=== PATIENT | female | born 1980 | race Caucasian/White ===

== ENCOUNTER 2018-01-29 08:46 | Emergency (ER) | payer MEDICAID ==
[~2018-01-29] VITALS: Ht 154.9 cm; Wt 98.9 kg
[~2018-01-29 08:46] MED LIST: ALPR1 PO; AMOCLA875 PO; AMOX250; AMOX500 PO; CEPH500 PO; CHOL10002 PO; CITA20 PO; CYCL10 PO; Cleocin HCl150 MG PO; Cleocin HCl300 MG PO; HYDACE5 PO; HYDACE5325 PO; HYDCHL25 PO; IBUP600 PO; IBUP800; IBUP800 PO; IMIP50 PO; LEVFLO500; LEVFLO500 PO; LEVSOD100 PO; LEVSOD112 PO; LEVSOD175; LEVSOD200 PO; LEVSOD75 PO; LIDO2L MM; LORA1 PO; LORA2 PO; MEDR10 PO; METO25ER PO; NAPR500 PO; NAPR550 PO; Naprosyn500 MG PO; Norco 5-325 Ta1 EACH PO; OXYACE5T PO; Oxycodone HCl5 M1; PARO20; PENVK500 PO; PHENA200 PO; PROM25 PO; PROP10 PO; PROP120ER; PROZAC; Prozac40 MG PO; Pyridium100 MG PO; RXHYD5325 PO; RXHYDACE PO; RXLORA1 PO; RXOXYACE PO; SULTRIDS PO; TRAM50; Ultram50 MG PO; [UNRECOGNIZED DRUG - OTHER]
[2018-01-29] MEDS ORDERED: CYCL10 PO (09:09)
[2018-01-29] MEDS ORDERED: METO25ER (09:10)
== END 2018-01-29 11:15 | disposition home or self-care (01) ==
LOC: ER 08:46
DX: S50.02XA Contusion of left elbow, initial encounter (principal); S40.012A Contusion of left shoulder, initial encounter; S70.02XA Contusion of left hip, initial encounter; S80.02XA Contusion of left knee, initial encounter; W01.198A Fall on same level from slipping, tripping and stumbling with subsequent striking against other object, initial encounter; Z88.0 Allergy status to penicillin; Z88.5 Allergy status to narcotic agent; Z88.1 Allergy status to other antibiotic agents; Z79.899 Other long term (current) drug therapy; E03.9 Hypothyroidism, unspecified; F41.9 Anxiety disorder, unspecified; F43.10 Post-traumatic stress disorder, unspecified; J44.9 Chronic obstructive pulmonary disease, unspecified; F32.9 Major depressive disorder, single episode, unspecified; F17.200 Nicotine dependence, unspecified, uncomplicated
CPT/HCPCS: 73030; 73070; 73502; 73562-LT; 96372; 99283-25; J1885

== ENCOUNTER 2018-05-20 18:06 | Emergency (ER) | payer SELFPAY ==
[~2018-05-20] VITALS: Ht 154.9 cm; Wt 99.8 kg
[~2018-05-20 18:06] MED LIST changes: +METO25ER
[2018-05-20 18:43] LABS: BASOPHILS ABSOLUTE AUTO 0.06 K/mm3 (0.00-0.23); BASOPHILS PERCENT AUTO 1 % (0-2); EOSINOPHILS PERCENT AUTO 3 % (0-6); Hematocrit 44.8 % (33.0-51.0); Hemoglobin 14.9 g/dL (11.5-16.0); IMMATURE GRAN ABSOLUTE AUTO 0.03 K/mm3 (0.00-0.10); IMMATURE GRAN PERCENT AUTO 0 % (0-1); LYMPHOCYTES ABSOLUTE AUTO 3.32 K/mm3 (0.84-5.20); LYMPHOCYTES PERCENT AUTO 41 % (21-46); MONOCYTES ABSOLUTE AUTO 0.37 K/mm3 (0.16-1.47); MONOCYTES PERCENT AUTO 5 % (4-13); Mean Corpuscular HGB 30.5 pg (26.0-34.0); Mean Corpuscular HGB Conc 33.3 g/dL (31.5-36.5); Mean Corpuscular Volume 92 fL (80-100); Mean Platelet Volume 10.8 fL (9.1-12.4); NEUTROPHILS ABSOLUTE AUTO 4.06 K/mm3 (1.96-9.15); NEUTROPHILS PERCENT AUTO 51 % (41-73); Platelet Count 226 K/mm3 (150-400); RDW Standard Deviation 41.1 fL (35.1-46.3); Red Blood Cell Count 4.88 M/mm3 (3.80-5.20); White Blood Cell Count 8.04 K/mm3 (4.00-11.30)
[2018-05-20 19:04] LABS: Alanine Aminotransfer (ALT/SGP 51 U/L (12-78); Albumin/Globulin Ratio 1.1 (0.8-1.8); Alk Phos 72 U/L (50-136); Anion Gap 7 mmol/L (6-16); Aspartate Aminotrans (AST/SGOT 27 U/L (12-37); Bilirubin, Total 0.6 mg/dL (0.1-1.0); Blood Urea Nitrogen 6 mg/dL (8-24); Bun/Creatinine Ratio 6.9 (12.0-20.0); CO2, Blood 25 mmol/L (21-32); Calcium, Blood 8.6 mg/dL (8.5-10.1); Chloride, Blood 104 mmol/L (98-108); Creatinine, Blood 0.87 mg/dL (0.40-1.00); Globulin, Blood 3.8 g/dL (2.2-4.0); Glomerular Filtration Rate >60 (60-); Glucose, Blood 119 mg/dL (70-99); Potassium, Blood 3.5 mmol/L (3.5-5.5); Sodium, Blood 136 mmol/L (136-145); Total Protein, Blood 7.8 g/dL (6.4-8.2)
== END 2018-05-20 20:43 | disposition home or self-care (01) ==
LOC: ER 18:06
PROVIDERS: Physician Assistant
DX: K80.70 Calculus of gallbladder and bile duct without cholecystitis without obstruction (principal); E03.9 Hypothyroidism, unspecified; F41.9 Anxiety disorder, unspecified; J44.9 Chronic obstructive pulmonary disease, unspecified; F32.9 Major depressive disorder, single episode, unspecified; F17.200 Nicotine dependence, unspecified, uncomplicated; K76.0 Fatty (change of) liver, not elsewhere classified; F43.10 Post-traumatic stress disorder, unspecified; Z85.41 Personal history of malignant neoplasm of cervix uteri; Z79.899 Other long term (current) drug therapy; Z88.1 Allergy status to other antibiotic agents; Z88.5 Allergy status to narcotic agent; Z88.8 Allergy status to other drugs, medicaments and biological substances
CPT/HCPCS: 36415; 76705; 80053; 83690; 85025; 99284-25

== ENCOUNTER 2018-06-09 08:53 | Day surgery (SDC) | payer SELFPAY ==
[~2018-06-09] VITALS: Ht 154.9 cm; Wt 100.7 kg
[~2018-06-09 08:53] MED LIST changes: +ARIP10 PO; +BUSP5 PO; +COMBIVENT RESPIM4 GM INH; +DICL75ER PO; +FLUO10 PO; +MELO7.5 PO; +SPIR50 PO; +Toprol Xl25 MG PO; +Zofran4 MG PO
--- NOTE | 2018-06-09 10:26 | NUR ---
Ambulatory in Day Surgery Surgical site prepped with 2% Chlorhexidine cloth wipe. History, Chart, Medications and Allergies reviewed before start of procedure.Lungs clear T/O to Auscultation. Patient confirms NPO status and agrees with scheduled surgery. Pre-Op teaching done. Pt verbalizes understanding. Patient reports completing Chlorhexadine shower X2 prior to admission to hospital.
--- NOTE | 2018-06-09 12:17 | NUR ---
REPORT TO JULIA LOWRY
--- NOTE | 2018-06-09 13:40 | NUR ---
Patient up to Ambulate independently. Gait steady. Discharge instructions reviewed with patient. Patient verbalizes understanding. Copy given to patient to take home. Patient States Post-Procedure ride home has been arranged. Discharged via wheelchair to private car for ride home.
--- NOTE | 2018-06-10 09:16 | NUR ---
06/10/18 0916 Elena Wilkinson VERIFICATIONS: EDIT CHART.
== END 2018-06-09 22:38 | disposition home or self-care (01) ==
LOC: ORSCMMR 08:53 → ORD 10:30 → ORSCMMR 10:30
PROVIDERS: Surgery
PROC: BF031ZZ Plain Radiography of Gallbladder and Bile Ducts using Low Osmolar Contrast (ICD-10-PCS; principal; 2018-06-09 10:30)
PROC: 0FT44ZZ Resection of Gallbladder, Percutaneous Endoscopic Approach (ICD-10-PCS; principal; 2018-06-09 10:30)
DX: K80.20 Calculus of gallbladder without cholecystitis without obstruction (principal); J44.9 Chronic obstructive pulmonary disease, unspecified; F17.210 Nicotine dependence, cigarettes, uncomplicated; E66.01 Morbid (severe) obesity due to excess calories; Z68.41 Body mass index [BMI] 40.0-44.9, adult
CPT/HCPCS: 74300; 88304; C1729; J0690; J1100; J1885; J2250; J2405; J2710; J3010; J7030; J7120

== ENCOUNTER 2020-02-01 11:45 | Emergency (ER) | payer SELFPAY ==
[~2020-02-01] VITALS: Ht 154.9 cm; Wt 94.8 kg
[2020-02-01 13:41] LABS: BASOPHILS ABSOLUTE AUTO 0.04 K/mm3 (0.00-0.23); BASOPHILS PERCENT AUTO 0 % (0-2); EOSINOPHILS ABSOLUTE AUTO 0.02 K/mm3 (0.00-0.68); EOSINOPHILS PERCENT AUTO 0 % (0-6); Hematocrit 45.6 % (33.0-51.0); Hemoglobin 15.4 g/dL (11.5-16.0); IMMATURE GRAN ABSOLUTE AUTO 0.03 K/mm3 (0.00-0.10); IMMATURE GRAN PERCENT AUTO 0 % (0-1); LYMPHOCYTES ABSOLUTE AUTO 1.73 K/mm3 (0.84-5.20); LYMPHOCYTES PERCENT AUTO 18 % (21-46); MONOCYTES ABSOLUTE AUTO 0.52 K/mm3 (0.16-1.47); MONOCYTES PERCENT AUTO 6 % (4-13); Mean Corpuscular HGB 29.6 pg (26.0-34.0); Mean Corpuscular HGB Conc 33.8 g/dL (31.5-36.5); Mean Corpuscular Volume 88 fL (80-100); Mean Platelet Volume 11.3 fL (9.1-12.4); NEUTROPHILS ABSOLUTE AUTO 7.17 K/mm3 (1.96-9.15); NEUTROPHILS PERCENT AUTO 75 % (41-73); Platelet Count 224 K/mm3 (150-400); RDW Coefficient Variation 11.6 % (11.7-14.2); RDW Standard Deviation 37.2 fL (35.1-46.3); White Blood Cell Count 9.51 K/mm3 (4.00-11.30)
[2020-02-01 14:00] LABS: Source, Urine Clean Catch
[2020-02-01 14:05] LABS: Alanine Aminotransfer (ALT/SGP 50 U/L (12-78); Albumin, Blood 3.8 g/dL (3.4-5.0); Albumin/Globulin Ratio 0.8 (0.8-1.8); Alk Phos 84 U/L (50-136); Anion Gap 9 mmol/L (6-16); Aspartate Aminotrans (AST/SGOT 30 U/L (12-37); Bilirubin, Total 1.1 mg/dL (0.1-1.0); Blood Urea Nitrogen 9 mg/dL (8-24); Bun/Creatinine Ratio 14.9 (12.0-20.0); CO2, Blood 23 mmol/L (21-32); Calcium, Blood 9.3 mg/dL (8.5-10.1); Chloride, Blood 105 mmol/L (98-108); Globulin, Blood 4.9 g/dL (2.2-4.0); Glomerular Filtration Rate >60 (60-); Glucose, Blood 109 mg/dL (70-99); Potassium, Blood 4.1 mmol/L (3.5-5.5); Sodium, Blood 137 mmol/L (136-145); Total Protein, Blood 8.7 g/dL (6.4-8.2)
[2020-02-01 14:14] LABS: Appearance, Urine Clear (Clear); Bilirubin, Urine Neg (Neg); Blood, Urine 1+ (Neg); Color, Urine Yellow (P-Yellow); Glucose Qualitative, Urine Neg (Neg); Ketones, Urine Neg (Neg); Leukocyte Esterase, Urine Neg (Neg); Nitrite, Urine Neg (Neg); Protein, Urine 1+ (Neg); Specific Gravity, Urine 1.015 (1.003-1.022); Urobilinogen, Urine NORM (Normal)
[2020-02-01 14:21] LABS: White Blood Cells, Urine Rare /hpf (0-5)
[2020-02-01 14:22] LABS: Bacteria Mod /hpf; Mucus Light (0-Heavy); Squamous Epithelial Cells Few /hpf (Few)
== END 2020-02-01 16:42 | disposition home or self-care (01) ==
LOC: ER 11:45
PROVIDERS: Physician Assistant
DX: K59.00 Constipation, unspecified (principal); E03.9 Hypothyroidism, unspecified; F41.9 Anxiety disorder, unspecified; J44.9 Chronic obstructive pulmonary disease, unspecified; F32.9 Major depressive disorder, single episode, unspecified; F17.210 Nicotine dependence, cigarettes, uncomplicated; Z88.1 Allergy status to other antibiotic agents; Z88.5 Allergy status to narcotic agent; Z88.8 Allergy status to other drugs, medicaments and biological substances; Z79.899 Other long term (current) drug therapy
CPT/HCPCS: 36415; 74018; 74177; 80053; 81001; 83690; 83735; 85025; 87086; 96361; 96374-59; 99284-25; J1885; J7120; Q9967

== ENCOUNTER 2020-03-18 11:08 | Day surgery (SDC) | payer SELFPAY ==
[~2020-03-18] VITALS: Ht 154.9 cm; Wt 95.0 kg
[2020-03-18] MEDS ORDERED: NEBI5 PO (12:08)
--- NOTE | 2020-03-18 12:51 | NUR ---
PT TOLERATES EXPLANT OF LINQ WELL. VSS. NADN. CALL LIGHT WITHIN REACH.
== END 2020-03-18 22:41 | disposition home or self-care (01) ==
LOC: MHTC 11:08
DX: Z45.09 Encounter for adjustment and management of other cardiac device (principal); I10 Essential (primary) hypertension; E78.5 Hyperlipidemia, unspecified; E03.9 Hypothyroidism, unspecified; F17.210 Nicotine dependence, cigarettes, uncomplicated; E66.9 Obesity, unspecified; Z79.899 Other long term (current) drug therapy; Z88.5 Allergy status to narcotic agent; Z88.1 Allergy status to other antibiotic agents; Z88.8 Allergy status to other drugs, medicaments and biological substances; Z68.39 Body mass index [BMI] 39.0-39.9, adult
CPT/HCPCS: 33286; J0690; J7040

== ENCOUNTER 2020-03-25 18:42 | Emergency (ER) | payer SELFPAY ==
[~2020-03-25] VITALS: Ht 154.9 cm; Wt 94.8 kg
[~2020-03-25 18:42] MED LIST changes: +NEBI5 PO
== END 2020-03-25 19:50 | disposition home or self-care (01) ==
LOC: ER 18:42
DX: Z48.01 Encounter for change or removal of surgical wound dressing (principal); F41.9 Anxiety disorder, unspecified; F32.9 Major depressive disorder, single episode, unspecified; J44.9 Chronic obstructive pulmonary disease, unspecified; E03.9 Hypothyroidism, unspecified; F17.210 Nicotine dependence, cigarettes, uncomplicated; Z88.1 Allergy status to other antibiotic agents; Z88.5 Allergy status to narcotic agent; Z88.8 Allergy status to other drugs, medicaments and biological substances; Z79.899 Other long term (current) drug therapy
CPT/HCPCS: 99282

== ENCOUNTER → 2020-06-14 | Outpatient (CLI) | payer SELFPAY | END | disposition home or self-care (01) | LOC: LAB 19:54 → LAB SHORT 19:54 | DX: L02.412 Cutaneous abscess of left axilla (principal) | CPT/HCPCS: 87070; 87075; 87076; 87205 ==

== ENCOUNTER → 2020-09-01 | Outpatient (CLI) | payer SELFPAY | END | disposition home or self-care (01) | LOC: LAB SHORT 15:58 → PLD 15:58 | DX: L57.0 Actinic keratosis (principal) | CPT/HCPCS: 88305 ==

== ENCOUNTER → 2020-09-07 | Outpatient (CLI) | payer OTHER | END | disposition home or self-care (01) | LOC: LAB SHORT 18:15 | DX: L02.411 Cutaneous abscess of right axilla (principal) | CPT/HCPCS: 87070; 87075; 87076; 87185; 87205 ==

== ENCOUNTER 2021-03-31 06:12 | Day surgery (SDC) | payer SELFPAY ==
[~2021-03-31] VITALS: Ht 157.5 cm; Wt 91.6 kg
--- NOTE | 2021-03-31 08:04 | NUR ---
03/31/21 0804 Deborah Latif ARMS SECURED ON PADDED ARM BOARDS. TOURNIQUET MANAGED BY DR BARNES.
== END 2021-03-31 09:37 | disposition home or self-care (01) ==
LOC: ORSCSDS 06:12
PROVIDERS: Orthopaedic Surgery
PROC: 0SBC4ZZ Excision of Right Knee Joint, Percutaneous Endoscopic Approach (ICD-10-PCS; principal; 2021-03-31 07:30)
DX: S83.281A Other tear of lateral meniscus, current injury, right knee, initial encounter (principal); S83.241A Other tear of medial meniscus, current injury, right knee, initial encounter; M25.561 Pain in right knee; I10 Essential (primary) hypertension; F17.210 Nicotine dependence, cigarettes, uncomplicated; G47.33 Obstructive sleep apnea (adult) (pediatric); J45.909 Unspecified asthma, uncomplicated; E66.01 Morbid (severe) obesity due to excess calories; Z68.36 Body mass index [BMI] 36.0-36.9, adult; Z79.899 Other long term (current) drug therapy
CPT/HCPCS: A9270; J0690; J1100; J1885; J2250; J2405; J2704; J3010; J7120

== ENCOUNTER 2023-09-25 12:29 | Emergency (ER) | payer SELFPAY ==
[~2023-09-25] VITALS: Ht 154.9 cm; Wt 95.7 kg
[2023-09-25 12:37] VITALS: BP 142/108
[2023-09-25] MEDS ORDERED: HYDROcodone 5-APAP 325 TAB PO ONE (12:45)
[2023-09-25] MEDS ORDERED: Ultram50 MG PO (15:04)
== END 2023-09-25 15:19 | disposition home or self-care (01) ==
LOC: ER 12:29
DX: S90.31XA Contusion of right foot, initial encounter (principal); S40.011A Contusion of right shoulder, initial encounter; S70.01XA Contusion of right hip, initial encounter; E03.9 Hypothyroidism, unspecified; J44.89 Other specified chronic obstructive pulmonary disease; F17.210 Nicotine dependence, cigarettes, uncomplicated; W10.9XXA Fall (on) (from) unspecified stairs and steps, initial encounter; Y92.009 Unspecified place in unspecified non-institutional (private) residence as the place of occurrence of the external cause; Y93.89 Activity, other specified
CPT/HCPCS: 73030; 73502; 73630; 99283-25; A9270

== ENCOUNTER 2024-10-12 19:50 | Emergency (ER) | payer BC ==
[~2024-10-12] VITALS: Ht 154.9 cm; Wt 95.2 kg
[~2024-10-12 19:50] MED LIST changes: +Percocet 5-3251 EACH PO; +Prednisone20 MG PO
[2024-10-12 20:11] LABS: BASOPHILS ABSOLUTE AUTO 0.04 K/mm3 (0.00-0.23); BASOPHILS PERCENT AUTO 1 % (0-2); EOSINOPHILS ABSOLUTE AUTO 0.15 K/mm3 (0.00-0.68); EOSINOPHILS PERCENT AUTO 2 % (0-6); Hemoglobin 14.5 g/dL (11.5-16.0); IMMATURE GRAN ABSOLUTE AUTO 0.02 K/mm3 (0.00-0.10); IMMATURE GRAN PERCENT AUTO 0 % (0-1); LYMPHOCYTES ABSOLUTE AUTO 3.04 K/mm3 (0.84-5.20); LYMPHOCYTES PERCENT AUTO 40 % (21-46); MONOCYTES ABSOLUTE AUTO 0.38 K/mm3 (0.16-1.47); MONOCYTES PERCENT AUTO 5 % (4-13); Mean Corpuscular HGB 30.2 pg (26.0-34.0); Mean Corpuscular HGB Conc 34.5 g/dL (31.5-36.5); Mean Corpuscular Volume 88 fL (80-100); Mean Platelet Volume 11.2 fL (9.1-12.4); NEUTROPHILS PERCENT AUTO 52 % (41-73); Platelet Count 207 K/mm3 (150-400); RDW Coefficient Variation 11.9 % (11.7-14.2); RDW Standard Deviation 38.6 fL (35.1-46.3); White Blood Cell Count 7.53 K/mm3 (4.00-11.30)
[2024-10-12] MEDS ORDERED: HYDROmorphone HCl/Pf 1MG SYR IV ONE (20:25)
[2024-10-12 20:42] LABS: Albumin, Blood 4.1 g/dL (3.4-5.0); Albumin/Globulin Ratio 1.2 (0.8-1.8); Bilirubin, Total 0.7 mg/dL (0.1-1.0); Calcium, Blood 9.2 mg/dL (8.5-10.1); Creatinine, Blood 0.73 mg/dL (0.40-1.00); Globulin, Blood 3.3 g/dL (2.2-4.0); Potassium, Blood 3.5 mmol/L (3.5-5.5); Total Protein, Blood 7.4 g/dL (6.4-8.2)
[2024-10-12 21:30] VITALS: BP 109/87
== END 2024-10-12 21:50 | disposition home or self-care (01) ==
LOC: ER 19:50
PROVIDERS: Emergency Medicine
DX: S62.646A Nondisplaced fracture of proximal phalanx of right little finger, initial encounter for closed fracture (principal); R20.2 Paresthesia of skin; E03.9 Hypothyroidism, unspecified; J44.89 Other specified chronic obstructive pulmonary disease; F17.210 Nicotine dependence, cigarettes, uncomplicated; Z88.1 Allergy status to other antibiotic agents; Z88.8 Allergy status to other drugs, medicaments and biological substances; Z88.5 Allergy status to narcotic agent; Z79.890 Hormone replacement therapy; Z79.52 Long term (current) use of systemic steroids; Z79.899 Other long term (current) drug therapy; W18.30XA Fall on same level, unspecified, initial encounter
CPT/HCPCS: 29125; 80053; 85025; 96374-59; 99283-25; J1171

== ENCOUNTER 2024-11-04 17:51 | Emergency (ER) | payer BC ==
[~2024-11-04] VITALS: Ht 154.9 cm; Wt 44.5 kg
[2024-11-04 18:34] VITALS: BP 125/100
[2024-11-04 19:24] LABS: Bun/Creatinine Ratio 13.2 (12.0-20.0); Calcium, Blood 9.5 mg/dL (8.5-10.1); Creatinine, Blood 0.68 mg/dL (0.40-1.00); Potassium, Blood 3.6 mmol/L (3.5-5.5)
== END 2024-11-04 19:00 | disposition home or self-care (01) ==
LOC: ER 17:51
PROVIDERS: Student in an Organized Health Care Education/Training Program
DX: Z47.89 Encounter for other orthopedic aftercare (principal); F43.10 Post-traumatic stress disorder, unspecified; J44.89 Other specified chronic obstructive pulmonary disease; E03.9 Hypothyroidism, unspecified; F17.210 Nicotine dependence, cigarettes, uncomplicated; Z79.52 Long term (current) use of systemic steroids; Z79.899 Other long term (current) drug therapy; Z88.1 Allergy status to other antibiotic agents; Z88.5 Allergy status to narcotic agent; Z88.8 Allergy status to other drugs, medicaments and biological substances
CPT/HCPCS: 36415; 80048; 93005; 93010; 99282-25

== ENCOUNTER 2024-12-21 06:08 | Day surgery (SDC) | payer BC ==
[~2024-12-21] VITALS: Ht 154.9 cm; Wt 93.2 kg
[~2024-12-21 06:08] MED LIST changes: +Lidocaine 1%-Epineph 1:100000 20 ML MDV ONE; +NS 500 ML IV ONE
[2024-12-21] MEDS ORDERED: CeFAZolin Sodium 2,000 MG VIAL ONE (06:31)
[2024-12-21] MEDS ORDERED: IBUP200 (06:37)
[2024-12-21] MEDS ORDERED: OXYCODONE-ACET1 EAC2 (06:37)
[2024-12-21] MEDS ORDERED: NS 500 ML IV ONE (06:48)
[2024-12-21] MEDS ORDERED: Lidocaine HCl 2% 10 ML SDA ONE (06:56)
[2024-12-21] MEDS ORDERED: Midazolam HCl 1MG / ML 2ML Vial ONE (07:12)
[2024-12-21 07:46] VITALS: BP 115/87
--- NOTE | 2024-12-21 07:47 | NUR ---
12/21/24 0747 BULMARO DERAS PT STATES THAT SHE LEFT HER DENTURES UPPER/LOWER ARE AT HOME.
[2024-12-21] MEDS ORDERED: HYDROcodone 5-APAP 325 TAB ONE (07:54)
[2024-12-21] MEDS ORDERED: OxyCODONE 5 mg/Acetamin 325 mg TABLET ONE (08:05)
== END 2024-12-21 08:26 | disposition home or self-care (01) ==
LOC: ORSCSDS 06:08
PROVIDERS: Orthopaedic Surgery
PROC: 0PP Upper Bones, Removal (ICD-10-PCS; principal; 2024-12-21 07:30)
DX: S62.316D Displaced fracture of base of fifth metacarpal bone, right hand, subsequent encounter for fracture with routine healing (principal); F17.210 Nicotine dependence, cigarettes, uncomplicated; E66.9 Obesity, unspecified; Z68.38 Body mass index [BMI] 38.0-38.9, adult; Z79.899 Other long term (current) drug therapy
CPT/HCPCS: A9270; J0690; J2003; J2250; J2704; J7040

== ENCOUNTER 2025-03-04 06:16 | Day surgery (SDC) | payer BC ==
[~2025-03-04] VITALS: Ht 154.9 cm; Wt 88.6 kg
[~2025-03-04 06:16] MED LIST changes: +IBUP200; -Lidocaine 1%-Epineph 1:100000 20 ML MDV ONE; -NS 500 ML IV ONE; +OXYCODONE-ACET1 EAC2
[2025-03-04] MEDS ORDERED: CeFAZolin Sodium 2,000 MG VIAL ONE (06:39)
[2025-03-04] MEDS ORDERED: Lidocaine HCl 2% 10 ML SDA ONE (07:14)
[2025-03-04 07:44] VITALS: BP 100/58
--- NOTE | 2025-03-04 07:52 | NUR ---
03/04/25 0750 Mignon Savage [age] PT ARRIVES TO SDU VERY SLEEPY, ABLE TO AROUSE WITH TOUCH AND FIRM VOICE COMMAND. SLURRING WORDS AND KEEPING EYES CLOSED. VERY SEDATED,
[2025-03-04] MEDS ORDERED: OxyCODONE 5 mg/Acetamin 325 mg TABLET ONE (08:01)
== END 2025-03-04 08:27 | disposition home or self-care (01) ==
LOC: ORSCSDS 06:16
PROVIDERS: Orthopaedic Surgery
PROC: 0RSWXZZ Reposition Right Finger Phalangeal Joint, External Approach (ICD-10-PCS; principal; 2025-03-04 07:30)
DX: S62.91XD Unspecified fracture of right hand, subsequent encounter for fracture with routine healing (principal); F17.210 Nicotine dependence, cigarettes, uncomplicated; I10 Essential (primary) hypertension; E78.5 Hyperlipidemia, unspecified; E03.9 Hypothyroidism, unspecified; M79.7 Fibromyalgia; F41.9 Anxiety disorder, unspecified; F32.A Depression, unspecified; Z95.0 Presence of cardiac pacemaker; G47.33 Obstructive sleep apnea (adult) (pediatric); E66.9 Obesity, unspecified; Z68.36 Body mass index [BMI] 36.0-36.9, adult; Z79.899 Other long term (current) drug therapy
CPT/HCPCS: A9270; J0690; J2003; J2704; J7120

== ENCOUNTER → 2025-03-24 | Outpatient (CLI) | payer BC ==
[2025-03-24 17:35] LABS: Source, Urine Clean Catch
[2025-03-24 18:47] LABS: Bilirubin, Urine Neg (Neg); Color, Urine Yellow (P-Yellow); Glucose Qualitative, Urine Neg (Neg); Ketones, Urine Neg (Neg); Leukocyte Esterase, Urine 1+ (Neg); Protein, Urine 1+ (Neg); Specific Gravity, Urine 1.030 (1.003-1.022); Urobilinogen, Urine 1+ (Normal)
== END ==
LOC: LAB SHORT 17:32 → LAB 17:32
PROVIDERS: Obstetrics & Gynecology
DX: R31.0 Gross hematuria (principal)
CPT/HCPCS: 81001; 87086